=== PATIENT | male | born 1975 | race African-American/Black ===

== ENCOUNTER 2021-08-31 15:58 | Emergency (ER) | payer MEDICARE, OTHER ==
[~2021-08-31] VITALS: Ht 190.5 cm; Wt 93.0 kg
[2021-08-31 16:00] VITALS: BP 141/104
--- NOTE | 2021-08-31 19:28 | NUR ---
Patient discharged with v/s stable. Written and verbal after care instructions given and explained. Patient verbalized understanding. Ambulatory with steady gait. All questions addressed prior to discharge. Advised to follow up with PMD.
== END 2021-08-31 19:28 | disposition home or self-care (01) ==
LOC: MED 15:58
DX: T18.2XXA Foreign body in stomach, initial encounter (principal); X58.XXXA Exposure to other specified factors, initial encounter; Y93.89 Activity, other specified; Y92.89 Other specified places as the place of occurrence of the external cause; Y99.8 Other external cause status
CPT/HCPCS: 36415; 71045; 84484; 93005; 99285